=== PATIENT | male | born 1985 | race Caucasian/White ===

== ENCOUNTER → 2021-09-11 | Outpatient (CLI) | payer OTHER, SELFPAY | END | disposition home or self-care (01) | LOC: LABSPEC 16:03 | PROVIDERS: PCP Internal Medicine; Referring Provider Otolaryngology; Visit Provider Otolaryngology | DX: H92.13 Otorrhea, bilateral (principal) | CPT/HCPCS: 87070; 87075; 87077; 87205 ==

== ENCOUNTER 2024-05-14 18:55 | Emergency (ER) | payer BC, SELFPAY ==
[2024-05-14 18:56] VITALS: BP 149/87; PULSE 79; RESP 16; TEMP 36.4; O2SAT 98; BMI 31.2
--- NOTE | 2024-05-14 19:14 | EDS_ITS ---
HPI History of Present Illness Chief Complaint: Ear Problem Detail of Chief Complaint: Right ear and throat pain Informant: patient Onset/Context/Timing Onset: Days (4 days) Context: Gradual Onset Current Severity: Mild Maximum Severity: Mild Narrative Narrative: Patient presents with a 4-day history of right ear and throat pain. Patient states initially this started as a pressure and aching sensation. Today it turned more painful. He has not had fever. No significant cough or congestion. No one else at home has been sick. He has not taken anything for his symptoms. PFSH PFS Medical History no medical history no medical history Home Medications ?Medication ?Instructions ?Recorded ?Last Taken ?Type bupropion HCl 300 mg 24 hr tablet, 300 mg PO DAILY 05/14/24 Unknown History extended release loratadine 10 mg tablet (Claritin) 10 mg PO DAILY #20 tabs 05/14/24 Unknown Rx Allergy/AdvReac Type Severity Reaction Status Date / Time No Known Allergies Allergy Verified 05/14/24 18:58 Surgical History H/O knee surgery H/O adenoidectomy History of tonsillectomy History of cholecystectomy H/O gastric bypass Social History Smoking Status: Never smoker ROS ROS ED Constitutional Constitutional ED: Denies chills or fever(s) Eyes Eyes: Denies discharge from eye(s) ENT ENT ED: Reports ear pain right and sore throat; Denies discharge from eye(s) or rhinorrhea Cardiovascular Cardiovascular: Denies chest pain Respiratory/Chest Respiratory/Chest: Denies cough or dyspnea Gastrointestinal Gastrointestinal: Denies abdominal pain, nausea or vomiting Musculoskeletal Musculoskeletal: Denies back pain or extremity pain Integumentary Denies Abrasions or rash Neurologic Neurologic: Denies headache(s) or weakness Psychiatric Psychiatric: Denies anxiety or depression Allergic/Immunologic Allergic/Immunologic ED: Denies lip swelling or urticaria EXAM Physical Exam Narrative Exam Narrative: Patient sitting upright in bed no acute distress. Speaks with a strong voice and is tolerating secretions well. Const Vital Signs: 05/14/24 18:56 Temperature 97.6 F L Temperature Source Temporal Pulse Rate 79 Respiratory Rate 16 Blood Pressure 149/87 H Blood Pressure Mean 107 Pulse Ox 98 Oxygen Delivery Method Room Air Positive well nourished and well developed General Appearance ED: well developed HEENT Reports moist mucous membranes HEENT Narrative: Clear fluid noted behind the right TM. Left canal is blocked with cerumen. Posterior pharynx examination is unremarkable. He may have some mild cobblestoning from drainage. Uvula is midline. Eyes PERRL and EOMs intact bilaterally Neck Neck Narrative: No significant cervical lymphadenopathy. Chest Wall inspection of chest normal and palpation of chest normal Resp normal respiratory effort and clear to auscultation bilaterally Cardio regular rate and regular rhythm GI non-tender Palpation: soft Extremity normal to inspection Neuro oriented x3 and no sensory deficits noted Motor Exam: strength 5/5 throughout Psych mental status grossly normal Skin no rashes or lesions noted MDM MDM MDM Narrative Medical decision making narrative: Patient given a dose of Naprosyn. Rapid strep obtained and sent. Treatment and Re-Evaluation :: Rapid strep test is negative. I do not see any evidence of acute otitis media. Patient does have some mild cobblestoning in his throat. He does not feel that he is having significant sinus drainage. We will put him on Claritin to see if this helps and symptoms. He can also take Benadryl to help dry up the fluid especially behind his right TM. Patient comfortable with the plan. He was advised to be rechecked if symptoms continue to worsen. He voices understanding and agreement. Discharge Plan Triage Chief Complaint: Ear Problem ED Provider: Georgette Yee Dx/Rx/DC Orders Clinical Impression: Otalgia, Pharyngitis Instructions: ED Earache Without Infection (Adult) Prescriptions: New loratadine [Claritin] 10 mg tablet 10 mg PO DAILY Qty: 20 0RF No Action bupropion HCl 300 mg tablet extended release 24 hr 300 mg PO DAILY Primary Care Provider: Janeen Solis Referrals: Janeen Solis MD [Primary Care Provider] - 3-5 Days if not improving Print Language: Romansh Disposition Disposition: Home, Self Care
[2024-05-14] MEDS: Naproxen 500 MG Tablet PO (19:24)
[2024-05-14] MEDS: Loratadine 10 MG Tablet PO (20:27)
[2024-05-14 20:28] VITALS: BP 134/92; PULSE 60; RESP 16; TEMP 36.9; O2SAT 98
== END 2024-05-14 20:30 | disposition home or self-care (01) ==
PROVIDERS: Emergency Provider Emergency Medicine; PCP Internal Medicine; Visit Provider Emergency Medicine
DX: H92.01 Otalgia, right ear (principal); J02.9 Acute pharyngitis, unspecified; Z79.899 Other long term (current) drug therapy
CPT/HCPCS: 87651; 99283